=== PATIENT | female | born 1980 | race Caucasian/White ===

== ENCOUNTER 2016-12-29 21:32 | Emergency (ER) | payer MEDICAID ==
[~2016-12-29] VITALS: Ht 162.6 cm; Wt 90.7 kg
[2016-12-29 21:42] VITALS: BP 127/85
[2016-12-29] MEDS: IBUPROFEN 600 MG TAB PO ONE (23:33)
[2016-12-30 00:12] VITALS: BP 126/72
== END 2016-12-30 00:11 | disposition home or self-care (01) ==
LOC: MED 21:32
DX: N39.0 Urinary tract infection, site not specified (principal); N76.0 Acute vaginitis

== ENCOUNTER 2017-03-26 20:06 | Emergency (ER) | payer MEDICAID ==
[~2017-03-26] VITALS: Ht 162.6 cm; Wt 93.9 kg
[2017-03-26 20:54] VITALS: BP 118/74
--- NOTE | 2017-03-26 21:00 | NUR ---
TO LOBBY , AMB, VS STABLE A/W FOR BED ERMD NOTED
--- NOTE | 2017-03-27 00:11 | NUR ---
Patient to [facility]. RN evaluating patient.
--- NOTE | 2017-03-27 00:11 | NUR ---
36/F CAME IN WITH C/O PRODUCTIVE COUGH AND NASAL CONGESTION X 5 DAYS, PT REPORTS FEVER YESTERDAY 100.1, CURRENTLY AFEBRILE. REPORTS SHE IS 12 WEEKS . ALL LUNG SOUNDS CBTA, 20 RR EVEN AND UNLABORED, WITH NASAL CONGESTION NOTED. REPORTS NAUSEA D/T MORNING SICKNESS. DENIES OTHER PMH/RX/OTC.
--- NOTE | 2017-03-27 01:00 | NUR ---
Patient discharged with v/s stable. Written and verbal after care instructions given and explained. Patient alert, oriented and verbalized understanding of instructions. Ambulatory with steady gait. All questions addressed prior to discharge. ID band removed. Patient advised to follow up with PMD. Rx of GUAIFENESIN/DEXTROMETHROPAN given. Patient educated on indication of medication including possible reaction and side effects. Opportunity to ask questions provided and answered.
[2017-03-27 01:07] VITALS: BP 124/74
== END 2017-03-27 01:00 | disposition home or self-care (01) ==
LOC: MED 20:06
DX: O26.891 Other specified pregnancy related conditions, first trimester (principal); B34.9 Viral infection, unspecified; Z3A.12 12 weeks gestation of pregnancy
CPT/HCPCS: 99282